=== PATIENT | male | born 1970 | race Caucasian/White ===

== ENCOUNTER 2017-03-26 11:05 | Inpatient (IN) | payer MEDICAID ==
--- NOTE | 2017-03-26 11:09 | EDPHY ---
H & P Time Seen by Provider: 03/26/17 11:09 HPI/ROS: CHIEF COMPLAINT: acute low back pain after lifting dog HISTORY OF PRESENT ILLNESS: 46-year-old male arrives by ambulance complaining of acute low back pain after he lifted his 120 lb dog this morning. As he was lifting his dog he felt a sudden, sharp, stabbing spasm like sensation in his paraspinous lumbar region. He has a history of chronic left lower extremity sciatica and degenerative disc disease of the lumbar spine. No fall. No incontinence. No retention. No saddle anesthesia. No foot drop. No abdominal pain. No chest pain. No dyspnea. No syncope. No prolonged periods of mobility on the floor. Given 200 mcg fentanyl via EMS. PRIMARY CARE PROVIDER: REVIEW OF SYSTEMS: A ten point review of systems was performed and is negative with the exception of the items mentioned in the HPI PAST MEDICAL & SURGICAL HISTORY: Inguinal herniorrhaphy. Chronic left lower extremity radiculopathy SOCIAL HISTORY: nonsmoker. No drug use. PHYSICAL EXAM (Prior to examination, patient consented to physical exam, hands were washed and my usual and customary physical exam procedures followed) 1) GENERAL: Well-developed, well-nourished, alert and oriented. Laying supine, hesitant to move secondary to pain which is reproducible with range of motion at the waist at which point he appears uncomfortable 2) HEAD: Normocephalic, atraumatic 3) HEENT: Pupils equal, round, reactive to light bilaterally. Sclera anicteric. Nasopharynx, oropharynx, clear, no lesions. 4) NECK: Full range of motion, no meningeal signs. 5) LUNGS: Clear auscultation bilaterally, no wheezes, no rhonchi, no retractions. 6) HEART: Regular rate and rhythm, no murmur, no heave, no gallop. 7) ABDOMEN: No guarding, no rebound, no focal tenderness, negative McBurney's, negative Hills's, negative Rovsing's, negative peritoneal sign, 8) MUSCULOSKELETAL: Moving all extremities, no focal areas of tenderness, no obvious trauma. No peripheral edema or discoloration. 9) BACK: No CVA tenderness. No lesions no vesicles. tender to palpation paraspinous muscle. No CVA tenderness, no midline vertebral tenderness, no fluctuance, no step-off, no obvious trauma, no visual or palpable abnormality. Patella, Achilles reflexes intact to bilateral strength 5/5 10) SKIN: No rash, no petechiae. 11) NEURO: Awake, alert, and oriented to person, place and time. Answers questions appropriately. There were no obvious focal neurologic abnormalities. No cerebellar dysfunction. Normal steady gait. Upper and lower extremities bilaterally with strength 5 / 5, reflexes 2+.. DIFFERENTIAL DIAGNOSIS: In no particular order, including but not limited to, fracture, sprain/strain, cauda equina, spinal infectious etiology. Constitutional: Initial Vital Signs Temperature (C) 38.0 C 03/26/17 11:16 Heart Rate 48 L 03/26/17 11:16 Respiratory Rate 17 03/26/17 11:16 Blood Pressure 170/95 H 03/26/17 11:16 O2 Sat (%) 92 03/26/17 11:16 O2 Delivery Mode Room Air Allergies/Adverse Reactions: No Known Allergies Allergy (Unverified 03/26/17 11:15) Home Medications: Medication Instructions Recorded NK [No Known Home Meds] 03/26/17 Medical Decision Making Procedures: 11:30 a.m.: Procedure: Trigger point injection Indication: Localized pain to the left lumbar paraspinous region Indications risks benefits discussed with patient and he consented. Areas of maximum tenderness to palpation identified on exam. 0.5% plain bupivacaine plus Solu-Medrol injected in my usual and customary manner. Patient tolerated procedure well. ED Course/Re-evaluation: MEDICAL DECISION MAKING This patient was re-evaluated with serial examinations. Most recent examination at 12:51 p.m. after receiving 200 mcg of pre-hospital fentanyl, IV benzodiazepine, Toradol, Decadron, receiving Lidoderm patch, receiving trigger- point injections, states that he has had no relief of symptoms. States that as long as he is laying supine and not moving he is okay however few tries to move at all he experiences exquisite pain. States that he is unable to care for himself. I do not think that discharge is appropriate this time. Plan will be admission to the hospital. Medical records accessed via [facility], he has a history of herniated disc and has previously seen spinal surgeon in [place] with no history of surgeries. Doubt renal pathology such as pyelonephritis or traumatic renal pathology as he has had no trauma, no urinary symptoms, he describes pain which started suddenly when he is lifting his 120 lb dog. Doubt cauda equina, epidural abscess, epidural hematoma, lumbar myositis, diskitis, as the patient is neurologically intact in the lower extremities, has patella and Achilles reflexes intact and equal bilaterally, has no neurologic deficits, no incontinence, no retention, no midline pain, no fluctuance, afebrile, no flulike symptoms. The case was discussed with secondary supervising physician Dr. Lacey in the ER. I consulted with the hospitalist Kristal Roca at 12:50 p.m., admit to Dr.Drew Shafer for intractable low back pain, MRI will be obtained. - Data Points Laboratory Results: Laboratory Results 03/26/17 12:00 03/26/17 12:00 03/26/17 03/26/17 12:00 12:00 WBC 10.87 10^3/uL H 10^3/uL (3.80-9.50) RBC 5.51 10^6/uL 10^6/uL (4.40-6.38) Hgb 18.5 g/dL H g/dL (13.7-17.5) Hct 51.6 % H % (40.0-51.0) MCV 93.6 fL fL (81.5-99.8) MCH 33.6 pg pg (27.9-34.1) MCHC 35.9 g/dL g/dL (32.4-36.7) RDW 13.1 % % (11.5-15.2) Plt Count 227 10^3/uL 10^3/uL (150-400) MPV 10.5 fL fL (8.7-11.7) Neut % (Auto) 77.2 % H % (39.3-74.2) Lymph % (Auto) 15.1 % % (15.0-45.0) [place] % (Auto) 6.4 % % (4.5-13.0) Eos % (Auto) 0.4 % L % (0.6-7.6) Baso % (Auto) 0.4 % % (0.3-1.7) Nucleat RBC Rel Count 0.0 % % (0.0-0.2) Absolute Neuts (auto) 8.40 10^3/uL H 10^3/uL (1.70-6.50) Absolute Lymphs (auto) 1.64 10^3/uL 10^3/uL (1.00-3.00) Absolute Monos (auto) 0.70 10^3/uL 10^3/uL (0.30-0.80) Absolute Eos (auto) 0.04 10^3/uL 10^3/uL (0.03-0.40) Absolute Basos (auto) 0.04 10^3/uL 10^3/uL (0.02-0.10) Absolute Nucleated RBC 0.00 10^3/uL 10^3/uL (0-0.01) Immature Gran % 0.5 % % (0.0-1.1) Immature Gran # 0.05 10^3/uL 10^3/uL (0.00-0.10) Sodium 141 mEq/L mEq/L (134-144) Potassium 3.9 mEq/L mEq/L (3.5-5.2) Chloride 104 mEq/L mEq/L (97-110) Carbon Dioxide 23 mEq/l mEq/l (22-31) Anion Gap 14 mEq/L mEq/L (8-16) BUN 10 mg/dL mg/dL (7-23) Creatinine 1.1 mg/dL mg/dL (0.7-1.3) Estimated GFR > 60 Glucose 95 mg/dL mg/dL (70-100) Calcium 10.1 mg/dL mg/dL (8.5-10.4) Medications Given: Discontinued Medications Dexamethasone (Decadron Injection) 10 mg IVP EDNOW ONE Stop: 03/26/17 11:23 Last Admin: 03/26/17 11:28 Dose: 10 mg Diazepam (Valium Injection) 5 mg IVP EDNOW ONE Stop: 03/26/17 11:33 Last Admin: 03/26/17 12:01 Dose: 5 mg Sodium Chloride (Ns) 1,000 mls @ 0 mls/hr IV ONCE ONE PRN Reason: Wide Open Stop: 03/26/17 11:24 Last Admin: 03/26/17 11:29 Dose: 1,000 mls Ketamine HCl (Ketamine) 19.5 mg 0.2 mg/kg (19.5 mg) IVP EDNOW ONE Stop: 03/26/17 11:33 Last Admin: 03/26/17 11:59 Dose: 19.5 mg Ketorolac Tromethamine (Toradol) 15 mg IVP EDNOW ONE Stop: 03/26/17 11:33 Last Admin: 03/26/17 12:11 Dose: 15 mg Lidocaine (Lidoderm 5%) 1 ea TD EDNOW ONE Stop: 03/26/17 11:33 Last Admin: 03/26/17 11:52 Dose: 1 ea Methylprednisolone Sodium Succinate (Solu-Medrol) 125 mg IVP EDNOW ONE Stop: 03/26/17 11:23 Last Admin: 03/26/17 11:29 Dose: 125 mg Ondansetron HCl (Zofran) 4 mg IVP EDNOW ONE Stop: 03/26/17 11:49 Last Admin: 03/26/17 11:49 Dose: 4 mg Departure - Departure Disposition: [facility] Acute Clinical Impression: Intractable low back pain Condition: Fair
[2017-03-26] MEDS ORDERED: DEXAMETHASONE 10 MG/ML VIAL IVP ONE (11:22)
[2017-03-26] MEDS ORDERED: methylPREDNISolone SOD SUCC 125 MG/2 ML VIAL IVP ONE (11:22)
[2017-03-26] MEDS ORDERED: NS 1,000 ML IV ONE (11:23)
[2017-03-26] MEDS ORDERED: DIAZEPAM 10 MG/2 ML SYR IVP ONE (11:32)
[2017-03-26] MEDS ORDERED: KETOROLAC 15 MG/1 ML SDV IVP ONE (11:32)
[2017-03-26] MEDS ORDERED: LIDOCAINE 5% 1 EA PATCH TD ONE (11:32)
[2017-03-26] MEDS ORDERED: KETAMINE 100 MG/10 ML SYR IVP ONE (11:32)
[2017-03-26] MEDS ORDERED: ONDANSETRON 4 MG/2 ML VIAL IVP ONE (11:48)
[2017-03-26 13:03] LABS: PLATELET COUNT 227 10^3/uL (150-400)
[2017-03-26] MEDS ORDERED: METHOCARBAMOL 1,000 MG in NS 50 ML IV ONE (13:14)
[2017-03-26] MEDS ORDERED: ACETAMINOPHEN 325 MG TAB PO PRN (13:15)
[2017-03-26] MEDS ORDERED: ONDANSETRON 4 MG/2 ML VIAL IVP PRN ×2 (13:15→15:59)
[2017-03-26] MEDS ORDERED: HYDROmorphONE/DILAUDID 1 MG/ML INJ IVP PRN (13:15)
[2017-03-26] MEDS ORDERED: ONDANSETRON DISINTEGRATING 4 MG TAB PO PRN ×2 (13:15→15:59)
[2017-03-26] MEDS ORDERED: HYDROmorphONE/DILAUDID 2 MG TAB PO PRN (13:15)
[2017-03-26] MEDS ORDERED: POLYETHYLENE GLYCOL 3350 17 GM PKT PO PRN (13:18)
[2017-03-26] MEDS ORDERED: LACTULOSE 20 GM/30 ML UDCUP PO PRN (13:18)
[2017-03-26] MEDS ORDERED: MAGNESIUM HYDROXIDE 30 ML UDCUP PO PRN (13:18)
[2017-03-26] MEDS ORDERED: BISACODYL 10 MG SUPP PR PRN (13:18)
[2017-03-26] MEDS ORDERED: NAPROXEN SODIUM 220 MG TAB PO SCH (13:30)
[2017-03-26] MEDS ORDERED: PROMETHAZINE HCL 25 MG/ML INJ IVP ONE (14:30)
[2017-03-26] MEDS ORDERED: PROMETHAZINE HCL 25 MG TAB PO PRN (15:22)
--- NOTE | 2017-03-26 15:52 | PDGENHP ---
History and Physical - Chief Complaint Acute back pain - History of Present Illness Primary care provider: None HPI: 46 yo M presenting with acute back pain characterized as sharp, stabbing pain located in his lumbar spine, with sudden onset today after picking up his 120 lb dog, duration persistent thereafter. 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 The pain has been exacerbated by movement, alleviated by lying supine with the legs flexed. Patient reports the pain is so severe at the presentation that he is unable to ambulate. He received a combination of lidocaine/Solu-Medrol injection in the emergency department, as well as Toradol/fentanyl/Valium/Robaxin, the patient began experiencing severe associated nausea and vomiting as well as general dis-ease. He reports that he was actually feeling better before he came to the emergency department and after these medications were initiated, he is feeling profoundly worse. History Information - Allergies/Home Medication List Allergies/Adverse Reactions: No Known Allergies Allergy (Unverified 03/26/17 11:15) Home Medications: Ibuprofen [Motrin (*)] 200 - 400 mg PO DAILY PRN 03/26/17 [Last Taken 03/26/17 400MG] oxyCODONE IR [Oxycodone Ir (*)] 5 mg PO DAILY PRN 03/26/17 [Last Taken 03/26/17] I have personally reviewed and updated: family history, medical history, social history, surgical history - Past Medical History Additional medical history: Lumbar spine herniated disc couple years ago, with intermittent symptoms, nonsurgically managed - Surgical History Additional surgical history: Recent hernia repair - Family History Additional family history: No family history of hematologic malignancies, he is secondary relatives with coronary artery disease, father with renal cell carcinoma - Social History Smoking Status: Current every day smoker Alcohol Use: None Drug Use: None Additional social history: Reports he is independent in his ADLs, does not actively exert himself, has not experienced any recent reduction in activity tolerance Review of Systems Review of Systems: ROS: 10pt was reviewed & negative except for what was stated in HPI & below Constitutional: Reports: malaise Gastrointestinal: Reports: vomitting, nausea Muscolosketal: Reports: back pain Physical Exam Physical Exam: Temp Pulse Resp BP Pulse Ox 36.1 C 46 L 15 137/87 H 98 03/26/17 14:33 03/26/17 14:33 03/26/17 14:33 03/26/17 14:33 03/26/17 14:33 Constitutional: appears nourished, uncomfortable, No no apparent distress ( Moderately distressed), No not in pain (Moderate pain) Eyes: PERRL, anicteric sclera, EOMI Ears, Nose, Mouth, Throat: moist mucous membranes, hearing normal, ears appear normal, no oral mucosal ulcers Cardiovascular: bradycardia (Unusually), No systolic murmur, No tachycardia, No edema Respiratory: no respiratory distress, no rales or rhonchi, clear to auscultation Gastrointestinal: normoactive bowel sounds, soft, non-tender abdomen, no palpable masses, No distension Genitourinary: no bladder fullness, no bladder tenderness Neurologic: AAOx3, sensation intact bilaterally, other (Negative straight leg raise, as the patient's legs are both flexed at approximately 90 degrees), No weakness (Motor strength is 5/5 in the bilateral lower extremities) Psychiatric: not encephalopathic, thought process linear, anxious, agitated Lab Data & Imaging Review 03/26/17 12:00 03/26/17 12:00 WBC 10.87 10^3/uL (3.80-9.50) H 03/26/17 12:00 RBC 5.51 10^6/uL (4.40-6.38) 03/26/17 12:00 Hgb 18.5 g/dL (13.7-17.5) H 03/26/17 12:00 Hct 51.6 % (40.0-51.0) H 03/26/17 12:00 MCV 93.6 fL (81.5-99.8) 03/26/17 12:00 MCH 33.6 pg (27.9-34.1) 03/26/17 12:00 MCHC 35.9 g/dL (32.4-36.7) 03/26/17 12:00 RDW 13.1 % (11.5-15.2) 03/26/17 12:00 Plt Count 227 10^3/uL (150-400) 03/26/17 12:00 MPV 10.5 fL (8.7-11.7) 03/26/17 12:00 Neut % (Auto) 77.2 % (39.3-74.2) H 03/26/17 12:00 Lymph % (Auto) 15.1 % (15.0-45.0) 03/26/17 12:00 [place] % (Auto) 6.4 % (4.5-13.0) 03/26/17 12:00 Eos % (Auto) 0.4 % (0.6-7.6) L 03/26/17 12:00 Baso % (Auto) 0.4 % (0.3-1.7) 03/26/17 12:00 Nucleat RBC Rel Count 0.0 % (0.0-0.2) 03/26/17 12:00 Absolute Neuts (auto) 8.40 10^3/uL (1.70-6.50) H 03/26/17 12:00 Absolute Lymphs (auto) 1.64 10^3/uL (1.00-3.00) 03/26/17 12:00 Absolute Monos (auto) 0.70 10^3/uL (0.30-0.80) 03/26/17 12:00 Absolute Eos (auto) 0.04 10^3/uL (0.03-0.40) 03/26/17 12:00 Absolute Basos (auto) 0.04 10^3/uL (0.02-0.10) 03/26/17 12:00 Absolute Nucleated RBC 0.00 10^3/uL (0-0.01) 03/26/17 12:00 Immature Gran % 0.5 % (0.0-1.1) 03/26/17 12:00 Immature Gran # 0.05 10^3/uL (0.00-0.10) 03/26/17 12:00 Sodium 141 mEq/L (134-144) 03/26/17 12:00 Potassium 3.9 mEq/L (3.5-5.2) 03/26/17 12:00 Chloride 104 mEq/L (97-110) 03/26/17 12:00 Carbon Dioxide 23 mEq/l (22-31) 03/26/17 12:00 Anion Gap 14 mEq/L (8-16) 03/26/17 12:00 BUN 10 mg/dL (7-23) 03/26/17 12:00 Creatinine 1.1 mg/dL (0.7-1.3) 03/26/17 12:00 Estimated GFR > 60 03/26/17 12:00 Glucose 95 mg/dL (70-100) 03/26/17 12:00 Calcium 10.1 mg/dL (8.5-10.4) 03/26/17 12:00 Assessment & Plan Assessment: 46-year-old male presenting with acute back pain Plan: 1. Back pain. Acute, likely secondary to herniated disc noted on lumbar MRI, likely precipitated by lifting heavy objects, notably his dog -patient received aggressive management in the emergency department without any significant relief in symptoms -although the patient did receive steroid injection, it is entirely possible that the steroid has yet to take effect and the lidocaine missed its therapeutic patito -consequently, will give him some IV steroids to hopefully reduce inflammation while his local injection is taking affect, can likely be discontinued tomorrow , depending on improvement -will provide him with high-dose IV Toradol, as is unlikely that this will provoked GI side effects which may be experience with all the opiates he received -if the Toradol is successful in managing pain, convert to oral scheduled nonsteroidal anti-inflammatory tomorrow -place him on scheduled Robaxin, as this is less likely to cause GI side effects than the opiates -p.r.n. Dilaudid for breakthrough, but avoid opiates at this time as they appear to be providing little relief and causing significant GI side effects -bowel regimen, incentive spirometer -physical and occupational therapy evaluations, beginning gauging patient in movement as soon as possible to improve likelihood short-term resolution 2. Bradycardia. Acute, new problem this provider, further workup indicated. Likely secondary to opiates received, combination of ketamine, fentanyl, Valium -given the significant nature of his symptoms, rule out myocardial ischemia with troponin now and repeat in a.m. -get EKG now and consider transferring to telemetry if any abnormalities noted 3. Nausea and vomiting. Acute, most likely secondary to side effects of opiates as well as bradycardia, will dose with as needed Phenergan and high- dose Zofran Diet. Regular as tolerated Prophylaxis. High risk patient, Lovenox 40 Code. Full Disposition. Anticipated discharge is 03/27/2017, pending improvement of condition as outlined above. Discussed patient's presentation with Kristal Roca, hospitalist provider, she has signed out the patient to me for evaluation.
[2017-03-26] MEDS ORDERED: METHOCARBAMOL 500 MG TAB PO SCH (16:00)
--- NOTE | 2017-03-26 16:24 | CPEKG ---
Heart Rate: 55 RR Interval: 1091 P-R Interval: 180 QRSD Interval: 96 QT Interval: 448 QTC Interval: 429 P [place]: 71 QRS [place]: 85 T Wave [place]: 61 EKG Severity - OTHERWISE NORMAL ECG - EKG Impression: SINUS ARRHYTHMIA, RATE 45-69 Electronically Signed By: Jony Franks 27-Mar-2017 08:22:17
--- NOTE | 2017-03-26 16:24 | CPEKG ---
Heart Rate: 55 RR Interval: 1091 P-R Interval: 180 QRSD Interval: 96 QT Interval: 448 QTC Interval: 429 P [place]: 71 QRS [place]: 85 T Wave [place]: 61 EKG Severity - OTHERWISE NORMAL ECG - EKG Impression: SINUS ARRHYTHMIA, RATE 45-69 Electronically Signed By: Jony Franks 27-Mar-2017 08:22:17
[2017-03-26] MEDS: methylPREDNISolone SOD SUCC 125 MG/2 ML VIAL IVP SCH (18:44)
[2017-03-26] MEDS ORDERED: NS 1,000 ML IV SCH (20:00)
[2017-03-26] MEDS: SENNOSIDES/DOCUSATE SODIUM TAB PO SCH (21:48)
[2017-03-26] MEDS: PATCH REMOVAL 1 EA PATCH TD SCH (22:00)
[2017-03-26] MEDS: METHOCARBAMOL 500 MG TAB PO SCH (23:28)
[2017-03-27] MEDS: methylPREDNISolone SOD SUCC 125 MG/2 ML VIAL IVP SCH ×4 (01:06→12:27)
[2017-03-27] MEDS: PROMETHAZINE HCL 25 MG/ML INJ IVP PRN (01:13)
[2017-03-27] MEDS: KETOROLAC 30 MG/1 ML SDV IVP PRN ×3 (04:55→23:03)
[2017-03-27 05:07] LABS: PLATELET COUNT 221 10^3/uL (150-400)
[2017-03-27] MEDS: METHOCARBAMOL 500 MG TAB PO SCH ×3 (09:46→22:10)
[2017-03-27] MEDS: SENNOSIDES/DOCUSATE SODIUM TAB PO SCH ×2 (09:48→22:13)
[2017-03-27] MEDS: ENOXAPARIN 40 MG/0.4 ML SYR SC SCH (09:49)
--- NOTE | 2017-03-27 11:11 | HOSPPROG ---
Hospitalist Progress Note Assessment/Plan: #Acute back pain: due to herniated disk. Appreciated NSGY consult -no neuro deficits -Medrol pack, Flexeril, PT, OT #Leukocytosis: due to steroids #Diet: regular #Disp: warrants inpt admission for PT, OT. Lives alone and at risk for fall and subsequent harm. If improved, can DC tomorrow Subjective: pain worse after walking with PT Objective: Vital Signs Temp Pulse Resp BP Pulse Ox 36.9 C 68 14 119/67 93 03/27/17 08:51 03/27/17 08:51 03/27/17 08:51 03/27/17 08:51 03/27/17 08:51 Laboratory Results 03/27/17 04:47 03/27/17 04:47 03/26/17 03/27/17 03/28/17 05:59 05:59 04:59 Intake Total 2312 Output Total 450 Balance 1862 - Physical Exam Constitutional: no apparent distress Eyes: PERRL Ears, Nose, Mouth, Throat: moist mucous membranes Cardiovascular: regular rate and rhythym, no murmur, rub, or gallop Respiratory: no respiratory distress Gastrointestinal: normoactive bowel sounds, soft, non-tender abdomen Genitourinary: no bladder fullness Skin: warm Musculoskeletal: full muscle strength, other (muscle spasm left paralumbar ) Neurologic: other (negative straight leg test) Psychiatric: interacting appropriately ICD10 Worksheet Patient Problems: Problems Problem Status Onset Intractable low back pain Acute
[2017-03-27] MEDS ORDERED: CYCLOBENZAPRINE 10 MG TAB PO PRN (11:14)
--- NOTE | 2017-03-27 12:22 | GCON ---
[f rep st] CONSULTATION DATE OF CONSULTATION: 03/27/2017 Patient was seen and evaluated at approximately 11:30 a.m. on the general care floor at [facility]. HISTORY OF PRESENT ILLNESS: The patient is a 46-year-old man who has had a history of left-sided rad iculopathy in the past, most recently several years ago, and then he has been having some back pain f or the past 2 weeks. Yesterday he was lifting heavy dog when he got sudden onset of back pain, as we ll as some pain radiating into the lateral and anterior thigh on the left side, roughly L3 distributi on. He was brought to the hospital by ambulance and was apparently unable to ambulate because of tiburcio n. He has now been given a lot of pain medications, and his pain is significantly improved. He has had some associated nausea and vomiting with the pain medication. He has no weakness in the leg, and did have epidural steroid injection in the past which helped him significantly. REVIEW OF SYSTEMS: A 10-point review of systems is negative other than that described above in HPI. PAST MEDICAL HISTORY: 1. Inguinal hernia. 2. Lower extremity radiculopathy. FAMILY HISTORY: Reviewed with the patient but noncontributory to this admission. SOCIAL HISTORY: Patient is a nonsmoker and he denies any alcohol or other drug use. ALLERGIES: No known drug allergies. MEDICATIONS: None. PHYSICAL EXAMINATION: Currently, he is afebrile with normal and stable vital signs. He is awake, al ert, and oriented x3. Pupils are equal, round, and reactive to light. Extraocular movements are int act. Face symmetric. Tongue is midline. 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 In the lower extremities, he has 5/5 strength at the hip flexors and extensors, knee flexors and extensors, and plantar and dorsiflexion. Currently, a st raight leg raise is negative for pain in the left leg. He has normal sensation throughout, and deep tendon reflexes are normal. IMAGING REVIEW: MRI of the lumbar spine reveals a far lateral disk herniation at L3-4 with significa nt compromise of the L3-4 foramen on the left and compression of the L3 nerve root. The remainder of the lumbar spine shows some degenerative disease but no significant canal or foraminal compromise. LABORATORY REVIEW: White count 14.8, hemoglobin 16.2, hematocrit 45.5, platelet count 221,000. Sodi um 140, potassium 4.0, BUN 10, creatinine 1.0, glucose 122. ASSESSMENT AND PLAN: The patient is a 46-year-old man with left acute L3 radiculopathy from a far la teral disk herniation at L3-4. He has been admitted to the hospital, and honestly currently does not seem to be a huge amount of pain. I would recommend a trial of conservative management prior to any surgical intervention, which could include anti-inflammatories such as Toradol or high-dose ibuprofe n, outpatient physical therapy, and either oral or epidural steroid injections. He has been started on a Medrol Dosepak, which I think is quite reasonable at this point, and if his pain is not tolerabl e for him to be able to walk tomorrow, we could also consider an epidural steroid injection. I am no t sure whether this will be able to be done as an inpatient, or if he could follow up as an outpatien t for this, but we can work this out if his pain is still bad tomorrow. He has no weakness or other signs of neurologic deficit that would be concerning at this time. We will follow along while he is an inpatient and determine if he needs any further interventions, but very likely he could probably b e discharged on oral steroids, muscle relaxants and/or nonsteroidal anti-inflammatories, and follow u p in the clinic. Please do not hesitate to contact us with any further questions or concerns. Thanks for the kind tato emerson. Sincerely, /[id number]/GUERLINEL
--- NOTE | 2017-03-27 14:27 | PDMN ---
Medical Necessity Medical necessity: C/M review: est. > 2 MN LOS for eval and TX of acute and persistentsevere lower back pain due to L3/L4 herniated disc requiring ongoing IV Ketrolac, oral Medrol pack, Flexeril , pain management, acute inpt PT/OT per 03/27/2017 Hospitalist progress note.
--- NOTE | 2017-03-27 15:45 | ASMTCMCOM ---
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 Patients needs still are pending for discharge to wait to see if he will need surgery or other intervention. Case management will follow. Date Signed: 03/27/2017 03:44 PM Electronically Signed By:DIANA Whalen
--- NOTE | 2017-03-27 15:45 | ASMTCMCOM ---
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 Patients needs still are pending for discharge to wait to see if he will need surgery or other intervention. Case management will follow. Date Signed: 03/27/2017 03:44 PM Electronically Signed By:DIANA Whalen
--- NOTE | 2017-03-27 15:45 | ASMTCMCOM ---
CM Note CM Note Notes: Patient here with intractable back pain following and incident of him trying to case picker his dog. Patients needs still are pending for discharge to wait to see if he will need surgery or other intervention. Case management will follow. Date Signed: 03/27/2017 03:44 PM Electronically Signed By:DIANA Whalen
[2017-03-27] MEDS: methylPREDNISolone 4 MG TAB PO SCH ×2 (19:13→22:10)
[2017-03-27] MEDS: PATCH REMOVAL 1 EA PATCH TD SCH (22:11)
[2017-03-28] MEDS: PROMETHAZINE HCL 25 MG/ML INJ IVP PRN (02:28)
--- NOTE | 2017-03-28 08:23 | SOAPPROG ---
[facility] Progress Note Assessment/Plan: Assessment: HD#2 with left L3 radiculopathy from left L3-4 far lateral disc herniation Plan: - leg pain has improved quite a bit, he just has some L3 distribution numbness now - main problem last night was N/V, not sure the etiology of this, meds? - I think he could discharge from a neurosurgical standpoint and we will keep close followup in the clinic (2 weeks) - he should get outpatient spine PT - if his pain worsens today, could get a left L3-4 TFESI tomorrow - we will follow 03/28/17 08:20 Subjective: c/o nausea/vomiting Objective: Vital Signs Temp Pulse Resp BP Pulse Ox 36.8 C 45 L 16 122/70 H 92 03/28/17 04:00 03/28/17 04:00 03/28/17 04:00 03/28/17 04:00 03/28/17 04:00 03/27/17 03/28/17 03/29/17 06:59 05:59 05:59 Intake Total Output Total Balance AAOx3, full strength and sensation, mild numbness in left L3 distribution - Pending Discharge Pending Discharge Within 24 Hours: Yes Pending Discharge Within 48 Hours: Yes Pending Discharge Date: 03/29/17 Pending Discharge Time: 11:00 ICD10 Worksheet Patient Problems: Problems Problem Status Onset Intractable low back pain Acute
[2017-03-28] MEDS ORDERED: CALCIUM CARBONATE 500 MG CHEWABLE TAB PO PRN (11:16)
[2017-03-28] MEDS: ENOXAPARIN 40 MG/0.4 ML SYR SC SCH (11:29)
[2017-03-28] MEDS ORDERED: MAG HYDROX/AL HYDROX/SIMETH 30 ML UDCUP PO ONE (11:30)
[2017-03-28] MEDS ORDERED: LIDOCAINE 2% VISCOUS 15 ML UDCUP PO ONE (11:30)
[2017-03-28] MEDS ORDERED: HYOSCYAMINE SULFATE 0.125 MG TAB PO ONE (11:30)
[2017-03-28] MEDS: METHOCARBAMOL 500 MG TAB PO SCH ×3 (11:30→22:01)
[2017-03-28] MEDS: NS 1,000 ML IV SCH ×2 (13:15→19:41)
[2017-03-28] MEDS: FAMOTIDINE 20 MG/NACL 50 ML IV SCH ×2 (13:16→19:34)
[2017-03-28] MEDS: SENNOSIDES/DOCUSATE SODIUM TAB PO SCH ×2 (14:13→19:42)
[2017-03-28] MEDS ORDERED: HYOSCYAMINE SULFATE 0.125 MG TAB PO PRN (15:16)
[2017-03-28] MEDS ORDERED: MAG HYDROX/AL HYDROX/SIMETH 30 ML UDCUP PO PRN (15:17)
[2017-03-28] MEDS ORDERED: LIDOCAINE 2% VISCOUS 15 ML UDCUP PO PRN (15:18)
--- NOTE | 2017-03-28 15:22 | HOSPPROG ---
Hospitalist Progress Note Assessment/Plan: #Acute back pain: due to herniated disk. Appreciated NSGY consult -no neuro deficits -Medrol pack, Flexeril, PT, OT #Leukocytosis: due to steroids #N/V: may be due to meds? Add Famotidine. Stop toradol with steroids. GI cocktail. Afebrile no diarrhea. Add IVFs. Check KUB #Diet: regular #Disp: warrants inpt admission for intractable N/V, start IVFs. If improved, can DC tomorrow Subjective: emesis overnight. No F/C/S. No diarrhea. Back pain minimal Objective: Vital Signs Temp Pulse Resp BP Pulse Ox 37.1 C 53 L 18 128/69 H 94 03/28/17 08:43 03/28/17 08:43 03/28/17 08:43 03/28/17 08:43 03/28/17 08:43 03/27/17 03/28/17 03/29/17 06:59 05:59 05:59 Intake Total Output Total Balance - Physical Exam Constitutional: no apparent distress Eyes: PERRL Ears, Nose, Mouth, Throat: hearing normal, dry mucous membranes Cardiovascular: regular rate and rhythym, no murmur, rub, or gallop Respiratory: no respiratory distress, no rales or rhonchi Gastrointestinal: normoactive bowel sounds, soft, non-tender abdomen, No tenderness Genitourinary: no bladder fullness Skin: warm Musculoskeletal: full muscle strength Neurologic: AAOx3, CN II-XII Intact Psychiatric: interacting appropriately, flat affect ICD10 Worksheet Patient Problems: Problems Problem Status Onset Intractable low back pain Acute
--- NOTE | 2017-03-28 15:49 | ASMTCMCOM ---
CM Note CM Note Notes: Pt had neurosurgical consult and they want to try conservative mgmt before surgery. Pt's needs are still TBD. Date Signed: 03/28/2017 03:48 PM Electronically Signed By:Liliana Gregory LCSW
--- NOTE | 2017-03-28 15:49 | ASMTCMCOM ---
CM Note CM Note Notes: Pt had neurosurgical consult and they want to try conservative mgmt before surgery. Pt's needs are still TBD. Date Signed: 03/28/2017 03:48 PM Electronically Signed By:Liliaan Gregory LCSW
[2017-03-28] MEDS: methylPREDNISolone 4 MG TAB PO SCH ×4 (15:58→17:00)
[2017-03-28] MEDS: PATCH REMOVAL 1 EA PATCH TD SCH (19:55)
[2017-03-28] MEDS ORDERED: methylPREDNISolone 4 MG TAB PO SCH (21:00)
[2017-03-29] MEDS: METHOCARBAMOL 500 MG TAB PO SCH (06:12)
[2017-03-29] MEDS: methylPREDNISolone 4 MG TAB PO SCH ×2 (07:30→13:00)
[2017-03-29] MEDS: SENNOSIDES/DOCUSATE SODIUM TAB PO SCH (07:30)
--- NOTE | 2017-03-29 07:34 | NEUSURGPN ---
Assessment/Plan: Assessment: 46 yo male that is HD#3 with left L3 radiculopathy from left L3-4 far lateral disc herniation Plan: -leg pain has improved quite a bit, he just has some L3 distribution numbness/ pain this am -pt wants to try a TFESI -ordered with IR -NPO now -recommend try injection this am and then likely ok for dc home later today -warning signs given -call with any questions or concerns -pt understands and agrees -d/w Dr Worthington -after dc he should get outpatient spine PT -we will continue to follow Subjective: Awake and alert. NAD. Eating/drinking and voiding. No f/c/n/v/d. No burk/neck/ chest/abd or gu complaints. Objective: AAO x 3, NAD PERRLA EOMI no droop CN 2-12 grossly intact +lt touch 5/5 BUE/BLE = except left HF at 5-/5 related to pain Neuro Check Frequency: per routine Urinary Catheter in Place: No - Physician Discussed Patient with : [facility] Physical Exam - Vitals, I&O, Labs I and O 03/28/17 03/29/17 03/30/17 05:59 05:59 05:59 Intake Total 3925 Output Total 2 Balance 3923 Intake: Oral (ml) 1900 IV Infused (ml) 2024 Ns 1,000 ml @ 125 mls/hr 2024 IV CONT BETO Rx#: [id number] Ns 1,000 ml @ 75 mls/hr IV CONT BETO Rx#: [id number] Output: Urine (ml) 2 Toilet 2 Emesis (ml) Other: Output Comment Toilet Number of Voids Toilet 2 Vital Signs Temp Pulse Resp BP Pulse Ox 36.7 C 47 L 16 124/75 H 94 03/29/17 04:00 03/29/17 04:00 03/29/17 04:00 03/29/17 04:00 03/29/17 04:00 Laboratory Results 03/29/17 05:36 03/29/17 05:36 ICD10 Worksheet Patient Problems: Problems Problem Status Onset Intractable low back pain Acute
--- NOTE | 2017-03-29 07:34 | NEUSURGPN ---
Assessment/Plan: Assessment: 46 yo male that is HD#3 with left L3 radiculopathy from left L3-4 far lateral disc herniation Plan: -leg pain has improved quite a bit, he just has some L3 distribution numbness/ pain this am -pt wants to try a TFESI -ordered with IR -NPO now -recommend try injection this am and then likely ok for dc home later today -warning signs given -call with any questions or concerns -pt understands and agrees -d/w Dr Worthington -after dc he should get outpatient spine PT -we will continue to follow Subjective: Awake and alert. NAD. Eating/drinking and voiding. No f/c/n/v/d. No burk/neck/ chest/abd or gu complaints. Objective: AAO x 3, NAD PERRLA EOMI no droop CN 2-12 grossly intact +lt touch 5/5 BUE/BLE = except left HF at 5-/5 related to pain Neuro Check Frequency: per routine Urinary Catheter in Place: No - Physician Discussed Patient with : [facility] Physical Exam - Vitals, I&O, Labs I and O 03/28/17 03/29/17 03/30/17 05:59 05:59 05:59 Intake Total 3925 Output Total 2 Balance 3923 Intake: Oral (ml) 1900 IV Infused (ml) 2024 Ns 1,000 ml @ 125 mls/hr 2024 IV CONT BETO Rx#: [id number] Ns 1,000 ml @ 75 mls/hr IV CONT BETO Rx#: [id number] Output: Urine (ml) 2 Toilet 2 Emesis (ml) Other: Output Comment Toilet Number of Voids Toilet 2 Vital Signs Temp Pulse Resp BP Pulse Ox 36.7 C 47 L 16 124/75 H 94 03/29/17 04:00 03/29/17 04:00 03/29/17 04:00 03/29/17 04:00 03/29/17 04:00 Laboratory Results 03/29/17 05:36 03/29/17 05:36 ICD10 Worksheet Patient Problems: Problems Problem Status Onset Intractable low back pain Acute
--- NOTE | 2017-03-29 07:34 | NEUSURGPN ---
Assessment/Plan: Assessment: 46 yo male that is HD#3 with left L3 radiculopathy from left L3-4 far lateral disc herniation Plan: -leg pain has improved quite a bit, he just has some L3 distribution numbness/ pain this am -pt wants to try a TFESI -ordered with IR -NPO now -recommend try injection this am and then likely ok for dc home later today -warning signs given -call with any questions or concerns -pt understands and agrees -d/w Dr Worthington -after dc he should get outpatient spine PT -we will continue to follow Subjective: Awake and alert. NAD. Eating/drinking and voiding. No f/c/n/v/d. No burk/neck/ chest/abd or gu complaints. Objective: AAO x 3, NAD PERRLA EOMI no droop CN 2-12 grossly intact +lt touch 5/5 BUE/BLE = except left HF at 5-/5 related to pain Neuro Check Frequency: per routine Urinary Catheter in Place: No - Physician Discussed Patient with : [facility] Physical Exam - Vitals, I&O, Labs I and O 03/28/17 03/29/17 03/30/17 05:59 05:59 05:59 Intake Total 3925 Output Total 2 Balance 3923 Intake: Oral (ml) 1900 IV Infused (ml) 2024 Ns 1,000 ml @ 125 mls/hr 2024 IV CONT BETO Rx#: [id number] Ns 1,000 ml @ 75 mls/hr IV CONT BETO Rx#: [id number] Output: Urine (ml) 2 Toilet 2 Emesis (ml) Other: Output Comment Toilet Number of Voids Toilet 2 Vital Signs Temp Pulse Resp BP Pulse Ox 36.7 C 47 L 16 124/75 H 94 03/29/17 04:00 03/29/17 04:00 03/29/17 04:00 03/29/17 04:00 03/29/17 04:00 Laboratory Results 03/29/17 05:36 03/29/17 05:36 ICD10 Worksheet Patient Problems: Problems Problem Status Onset Intractable low back pain Acute
--- NOTE | 2017-03-29 08:41 | HOSPPROG ---
Hospitalist Progress Note Assessment/Plan: #Acute back pain: due to herniated disk. Appreciated NSGY consult -steroid injection today, can DC after if pain controlled -DC with Robaxin, APAP, outpatient PT #Leukocytosis: due to steroids #N/V: resolved. may be due to meds? Add Famotidine. Stop toradol with steroids. GI cocktail. Afebrile no diarrhea. Add IVFs. Negative KUB #Diet: regular #Disp: warrants inpt admission for steroid injection. Can DC today if pain controlled after IR procedure Subjective: no N/V today Objective: Vital Signs Temp Pulse Resp BP Pulse Ox 36.7 C 47 L 16 124/75 H 94 03/29/17 04:00 03/29/17 04:00 03/29/17 04:00 03/29/17 04:00 03/29/17 04:00 Laboratory Results 03/29/17 05:36 03/29/17 05:36 03/28/17 03/29/17 03/30/17 05:59 05:59 05:59 Intake Total 3925 Output Total 2 Balance 3923 - Physical Exam Constitutional: no apparent distress Eyes: PERRL Ears, Nose, Mouth, Throat: moist mucous membranes Cardiovascular: regular rate and rhythym Respiratory: no respiratory distress Gastrointestinal: normoactive bowel sounds, soft, non-tender abdomen, no palpable masses, No tenderness Skin: warm Musculoskeletal: other (decreased LLE strength due to pain) Neurologic: AAOx3, CN II-XII Intact, other (negative straight leg test) Psychiatric: interacting appropriately ICD10 Worksheet Patient Problems: Problems Problem Status Onset Intractable low back pain Acute
[2017-03-29] MEDS: NS 1,000 ML IV SCH (10:46)
[2017-03-29] MEDS: FAMOTIDINE 20 MG/NACL 50 ML IV SCH (11:04)
--- NOTE | 2017-03-29 15:45 | PDPROPOC ---
Sedation Plan of Care Sedation Plan of Care: vital signs stable, mental status noted, patient educated of risks, benefits, alternatives, patient can tolerate sedation ASA Classification: ASA 1 Planned drugs: fentanyl, midazolam Mallampati Score: Class 2 Mallampati Reference Image: Patient passed 3-3-2 rule?: Yes (We discussed Left 3 selective nerve root block in detail. Consented.)
[2017-03-29 16:24] VITALS: PULSE 50
--- NOTE | 2017-03-29 16:28 | ASDISCHSUM ---
Discharge Information Plan Status:Has needs-TBD Medically Cleared to Leave:03/28/2017 Discharge Date:03/28/2017 CM D/C Disposition:Home, Routine, Self-Care ADT D/C Disposition:Home, Routine, Self-Care Projected Discharge Date:03/29/2017 05:00 PM Transportation at D/C:Family Discharge Delay Reason: Follow-Up Date:03/29/2017 05:00 PM Discharge Slot: Final Diagnosis:Herniated Disk Placement Information Patient Contact Information Contact Name:THEO Relationship:Father Address: Work Phone: City: [facility] Phone: State/Zip Code:[place] Email: Financial Information Financial Class: Primary Plan Desc:[employer] Primary Plan Number:[id number] Secondary Plan Desc: Secondary Plan Number: Assessment Information LACE LACE Length of stay for Answers: Less than 1 day current admission Acuity / Level of Care Answers: Was the patient admitted to hospital via the emergency department? 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 Patients needs still are pending for discharge to wait to see if he will need surgery or other intervention. Case management will follow. Date Signed: 03/27/2017 03:44 PM Electronically Signed By:DIANA Whalen [facility] CM Progress Note CM Note CM Note Notes: Pt had neurosurgical consult and they want to try conservative mgmt before surgery. Pt's needs are still TBD. Date Signed: 03/28/2017 03:48 PM Electronically Signed By:Liliana Gregory LCSW [facility] CM Progress Note CM Note CM Note Notes: Patient discharging home Independent following steroid injection in his back. Patient will f/u outpatient. No addiional Case management apparent at this time. Date Signed: 03/29/2017 04:26 PM Electronically Signed By:DIANA Whalen Intervention Information
--- NOTE | 2017-03-29 16:28 | ASDISCHSUM ---
Discharge Information Plan Status:Has needs-TBD Medically Cleared to Leave:03/28/2017 Discharge Date:03/28/2017 CM D/C Disposition:Home, Routine, Self-Care ADT D/C Disposition:Home, Routine, Self-Care Projected Discharge Date:03/29/2017 05:00 PM Transportation at D/C:Family Discharge Delay Reason: Follow-Up Date:03/29/2017 05:00 PM Discharge Slot: Final Diagnosis:Herniated Disk Placement Information Patient Contact Information Contact Name:THEO Relationship:Father Address: Work Phone: City: [facility] Phone: State/Zip Code:[place] Email: Financial Information Financial Class: Primary Plan Desc:[employer] Primary Plan Number:[id number] Secondary Plan Desc: Secondary Plan Number: Assessment Information LACE LACE Length of stay for Answers: Less than 1 day current admission Acuity / Level of Care Answers: Was the patient admitted to hospital via the emergency department? 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 Patients needs still are pending for discharge to wait to see if he will need surgery or other intervention. Case management will follow. Date Signed: 03/27/2017 03:44 PM Electronically Signed By:DIANA Whalen [facility] CM Progress Note CM Note CM Note Notes: Pt had neurosurgical consult and they want to try conservative mgmt before surgery. Pt's needs are still TBD. Date Signed: 03/28/2017 03:48 PM Electronically Signed By:Liliana Gregory LCSW [facility] CM Progress Note CM Note CM Note Notes: Patient discharging home Independent following steroid injection in his back. Patient will f/u outpatient. No addiional Case management apparent at this time. Date Signed: 03/29/2017 04:26 PM Electronically Signed By:DIANA Whalen Intervention Information
--- NOTE | 2017-03-29 16:28 | ASDISCHSUM ---
Discharge Information Plan Status:Has needs-TBD Medically Cleared to Leave:03/28/2017 Discharge Date:03/28/2017 CM D/C Disposition:Home, Routine, Self-Care ADT D/C Disposition:Home, Routine, Self-Care Projected Discharge Date:03/29/2017 05:00 PM Transportation at D/C:Family Discharge Delay Reason: Follow-Up Date:03/29/2017 05:00 PM Discharge Slot: Final Diagnosis:Herniated Disk Placement Information Patient Contact Information Contact Name:THEO Relationship:Father Address: Work Phone: City: [facility] Phone: State/Zip Code:[place] Email: Financial Information Financial Class: Primary Plan Desc:[employer] Primary Plan Number:[id number] Secondary Plan Desc: Secondary Plan Number: Assessment Information LACE LACE Length of stay for Answers: Less than 1 day current admission Acuity / Level of Care Answers: Was the patient admitted to hospital via the emergency department? 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 Patients needs still are pending for discharge to wait to see if he will need surgery or other intervention. Case management will follow. Date Signed: 03/27/2017 03:44 PM Electronically Signed By:DIANA Whalen [facility] CM Progress Note CM Note CM Note Notes: Pt had neurosurgical consult and they want to try conservative mgmt before surgery. Pt's needs are still TBD. Date Signed: 03/28/2017 03:48 PM Electronically Signed By:Liliana Gregory LCSW [facility] CM Progress Note CM Note CM Note Notes: Patient discharging home Independent following steroid injection in his back. Patient will f/u outpatient. No addiional Case management apparent at this time. Date Signed: 03/29/2017 04:26 PM Electronically Signed By:DIANA Whalen Intervention Information
[2017-03-29] MEDS ORDERED: NS 1,000 ML IV SCH (16:45)
[2017-03-29] MEDS ORDERED: TRIAMCINOLONE ACETONIDE 200 MG/5 ML MDV IM ONE (17:23)
[2017-03-29 18:13] VITALS: BP 136/92; RESP 18; TEMP 98.1; O2SAT 92
[2017-03-30] MEDS ORDERED: methylPREDNISolone 4 MG TAB PO SCH (07:30)
--- NOTE | 2017-03-30 12:34 | GDS ---
[f rep st] DISCHARGE SUMMARY DISCHARGE DIAGNOSES: 1. History of left-sided radiculopathy. 2. Acute back pain. 3. L3-4 lateral disk herniation. 4. Nausea/vomiting. 5. Bradycardia. HISTORY: A 46-year-old male with history of left-sided radiculopathy in the past, who presented with acute back pain after picking up a 120-pound dog. He describes the pain in the left side of his lum bar spine and sharp. It has been persistent ever since lifting his dog. He was twisted when he lift ed him up from the ground. The pain is exacerbated by movement and alleviated by lying supine and hi s legs flexed. He presented in the ER, and pain was not controlled; thus, he was admitted for furthe r evaluation. HOSPITAL COURSE BY PROBLEM: 1. Acute back pain: MRI showed lateral herniation of L3-L4, likely exacerbated by lifting his dog. He was evaluated by Neurosurgery. Initially placed on Toradol and Medrol pack. Pain was not reliev ed; thus, he underwent steroid injection. He is discharged on Robaxin and Tylenol. He is to follow up with Dr. Worthington's office in 2 weeks, outpatient spine therapy. 2. Nausea/vomiting: This occurred on the 2nd day of admission. Unclear whether it was related to h is dinner versus a combination of medications. A KUB was negative. He remained afebrile without yessy kocytosis. This has since resolved, and he was tolerating p.o. at time of discharge. 3. Bradycardia: Asymptomatic. EKG showed sinus arrhythmia. Troponin's negative x2. Patient denie s chest pain and shortness of breath. Would follow up with his primary care provider if symptomatic. Denies any syncopal episodes. DISPOSITION: Patient is stable for discharge. DISCHARGE MEDICATIONS: 1. Robaxin. 2. Oxycodone (20 tabs). 3. Tylenol as needed. FOLLOWUP: 1. Dr. Worthington in 2 weeks. 2. Provide a prescription for outpatient spine physical therapy. /[id number]/MODL
[2017-03-31] MEDS ORDERED: methylPREDNISolone 4 MG TAB PO SCH (07:30)
[2017-04-01] MEDS ORDERED: methylPREDNISolone 4 MG TAB PO SCH (07:30)
== END 2017-03-29 19:44 | disposition home or self-care (01) | DRG 552 ==
LOC: F1N 14:09 → OBSVTOIN 03-27 13:28
PROVIDERS: ADMIT Internal Medicine; ATTEND Internal Medicine
PROC: 3E0233Z Introduction of Anti-inflammatory into Muscle, Percutaneous Approach (ICD-10-PCS; principal; 2017-03-27)
PROC: 3E0S3BZ Introduction of Anesthetic Agent into Epidural Space, Percutaneous Approach (ICD-10-PCS; 2017-03-29)
PROC: 3E0S33Z Introduction of Anti-inflammatory into Epidural Space, Percutaneous Approach (ICD-10-PCS; 2017-03-29)
DX: M54.9 Dorsalgia, unspecified (principal); M51.26 Other intervertebral disc displacement, lumbar region; M54.16 Radiculopathy, lumbar region; M51.36 Other intervertebral disc degeneration, lumbar region; D72.829 Elevated white blood cell count, unspecified; R11.2 Nausea with vomiting, unspecified; R00.1 Bradycardia, unspecified; X50.0XXA Overexertion from strenuous movement or load, initial encounter; Y93.K9 Activity, other involving animal care; F17.200 Nicotine dependence, unspecified, uncomplicated
CPT/HCPCS: 96374; 97161-GP; 97165-GO; G0378; J1100; J1650; J1885; J2405; J2550; J2800; J2930; J3301